=== PATIENT | female | born 1960 | race Caucasian/White ===

== ENCOUNTER 2024-08-04 14:35 | Emergency (ER) | payer MEDICARE, OTHER ==
[~2024-08-04] VITALS: Ht 144.8 cm; Wt 44.9 kg
[~2024-08-04 14:35] MED LIST: LEVO500T90 PO; METH4TAB17 PO; MOME17SP NS
[2024-08-04 14:57] VITALS: TEMP 98.8
[2024-08-04] MEDS ORDERED: KETOROLAC TROMETHAMINE 15 MG/ML VIAL ONE (15:23)
[2024-08-04] MEDS: KETOROLAC TROMETHAMINE 15 MG/ML VIAL IM ONE (15:36)
[2024-08-04 15:55] LABS: APPEARANCE,URINE CLEAR (CLEAR); BILIRUBIN,URINE NEGATIVE (NEGATIVE); BLOOD, URINE TRACE-INTA Ery/uL (NEGATIVE); COLOR,URINE YELLOW (YELLOW); KETONES,URINE 2+ mg/dL (NEGATIVE); LEUKOCYTE ESTERASE ,URINE NEGATIVE (NEGATIVE); NITRITE, URINE NEGATIVE (NEGATIVE); PH,URINE 6.5 (5.0-8.0); PROTEIN,URINE TRACE mg/dl (NEGATIVE); UGLUCOSE NEGATIVE (NEGATIVE)
[2024-08-04 16:13] LABS: SQUAMOUS EPITHELIAL CELL,UR Few /HPF (None Seen)
[2024-08-04 16:14] LABS: ADD URINE CULTURE NO; BACTERIA,URINE Few /HPF (None Seen); WBC,URINE 0-2 /HPF (0-3)
[2024-08-04] MEDS ORDERED: MELO-107 PO (16:21)
[2024-08-04 17:14] VITALS: BP 142/75; O2SAT 97
== END 2024-08-04 17:14 | disposition home or self-care (01) ==
LOC: ER 14:39
DX: M25.551 Pain in right hip (principal); M41.9 Scoliosis, unspecified; I10 Essential (primary) hypertension; M54.40 Lumbago with sciatica, unspecified side; M79.7 Fibromyalgia; M81.0 Age-related osteoporosis without current pathological fracture; Z79.51 Long term (current) use of inhaled steroids; Z87.440 Personal history of urinary (tract) infections; Z88.5 Allergy status to narcotic agent
CPT/HCPCS: 99284; 96372; 73502; 81001; 82962; J1885

== ENCOUNTER 2024-09-13 03:17 | Emergency (ER) | payer MEDICARE, OTHER ==
[~2024-09-13] VITALS: Ht 152.4 cm; Wt 43.1 kg
[~2024-09-13 03:17] MED LIST changes: +MELO-107 PO
[2024-09-13] MEDS: ALBUTEROL FS 2.5 MG/3 ML VIAL.NEB NEB ONE (05:21)
[2024-09-13 05:22] VITALS: O2SAT 96
[2024-09-13] MEDS ORDERED: ALBUTEROL FS 2.5 MG/3 ML VIAL.NEB ONE (05:22)
[2024-09-13] MEDS ORDERED: ALBU8.5H8 INH (05:26)
[2024-09-13] MEDS ORDERED: AZIT250T PO (05:26)
[2024-09-13] MEDS ORDERED: BENZ-13 PO (05:26)
[2024-09-13 05:37] VITALS: O2SAT 99
[2024-09-13 07:18] VITALS: BP 138/77; TEMP 99.8; O2SAT 98
== END 2024-09-13 07:19 | disposition home or self-care (01) ==
LOC: ER 03:23
DX: J40 Bronchitis, not specified as acute or chronic (principal); I10 Essential (primary) hypertension; M19.90 Unspecified osteoarthritis, unspecified site; M41.9 Scoliosis, unspecified; M79.7 Fibromyalgia; Z79.1 Long term (current) use of non-steroidal anti-inflammatories (NSAID); Z79.51 Long term (current) use of inhaled steroids; Z88.5 Allergy status to narcotic agent; Z20.822 Contact with and (suspected) exposure to COVID-19
CPT/HCPCS: 71045-TC